=== PATIENT | female | born 1985 | race Caucasian/White ===

== ENCOUNTER 2017-06-15 04:11 | Emergency (ER) | payer MEDICAID, OTHER ==
[2017-06-15 04:47] VITALS: BP 128/107
--- NOTE | 2017-06-15 07:54 | ER ---
DATE SEEN: 06/15/2017 CHIEF COMPLAINT: Injury of the left thumb. HISTORY OF PRESENT ILLNESS: This is a 31-year-old, who slammed the door on the left thumb at work. Complains of pain that is burning and moderate in intensity, radiates up to the wrist. PAST MEDICAL HISTORY: No active medical problems. ALLERGIES: None. PHYSICAL EXAMINATION: VITAL SIGNS: Blood pressure is 128/107, pulse is 102, and temperature is 97.8. EXTREMITIES: Left thumb reveals no obvious signs of deformity, extremely tender to palpation, and has decreased range of motion at the DIP. X-ray, however, was negative to my interpretation. IMPRESSION: Soft tissue injury to the left thumb. PLAN: Rest, ibuprofen p.r.n., and follow up p.r.n. TIME SEEN: 0430 hours. /[id number] MAKAYLA/COOKIE
--- NOTE | 2017-06-15 10:29 | CR ---
INDICATION: Left thumb injury. LEFT THUMB: Three views of the left thumb revealed no evidence of an acute fracture, dislocation, or other significant bone or joint abnormality. ODELLD
== END 2017-06-15 04:50 | disposition home or self-care (01) ==
LOC: FB.ED 04:11
DX: S69.92XA Unspecified injury of left wrist, hand and finger(s), initial encounter (principal); W23.0XXA Caught, crushed, jammed, or pinched between moving objects, initial encounter; Y92.69 Other specified industrial and construction area as the place of occurrence of the external cause; Y99.0 Civilian activity done for income or pay
CPT/HCPCS: 73140-FA; 99283